=== PATIENT | female | born 1945 | race Caucasian/White ===

== ENCOUNTER 2022-01-16 11:15 | Day surgery (SDC) | payer MEDICARE, MEDICAID ==
[2022-01-16] VITALS (10 sets, daily range): BP systolic 110–159; BP diastolic 47–83
[~2022-01-16] VITALS: Ht 162.6 cm; Wt 64.8 kg
[~2022-01-16 11:15] MED LIST: ADVAIR HFA; ALBUTEROL; ASPI-611 PO; ATOR80TA PO; BLAC80CA; CHOL100024; IOHEXOL 350 MG/ML INFUS..BTL 125ML IV ONE; NITR0.4T48 SL; OMEP40CA21 PO; ONDA4TAB12 PO
[2022-01-16] MEDS ORDERED: normal saline 1,000 ML IV SCH (11:40)
[2022-01-16] MEDS ORDERED: diphenhydrAMINE 25mg capsule PO PRN (11:40)
[2022-01-16 12:18] LABS: BASOPHILS % (AUTO) 0.8 % (0-1); EOSINOPHILS # (AUTO) 0.2 X10'3 (0-0.9); EOSINOPHILS % (AUTO) 2.5 % (0-6); HEMATOCRIT 40.3 % (35.0-45.0); HEMOGLOBIN 13.5 g/dl (12.0-16.0); LYMPHOCYTES # (AUTO) 2.2 X10'3 (1.1-4.8); LYMPHOCYTES % (AUTO) 35.9 % (21-51); MEAN CORPUSCULAR HEMOGLOBIN 33.1 PG (27.0-31.0); MEAN CORPUSCULAR HGB CONC 33.5 g/dL (33.0-36.5); MEAN CORPUSCULAR VOLUME 98.9 FL (78-98); MONOCYTES # (AUTO) 0.4 X10'3 (0-0.9); MONOCYTES % (AUTO) 7.2 % (2-12); NEUTROPHILS # (AUTO) 3.3 X10'3 (1.8-7.7); NEUTROPHILS % (AUTO) 53.6 % (42-75); PLATELET COUNT 170 X10'3 (140-440); RED BLOOD COUNT 4.08 X10'6 (4.20-5.60); RED CELL DISTRIBUTION WIDTH 13.8 % (11.5-14.5); WHITE BLOOD COUNT 6.1 X10'3 (4.5-11.0)
[2022-01-16 12:25] LABS: ALBUMIN 3.7 G/DL (3.4-5.0); ANION GAP 12 (8-16); BLOOD UREA NITROGEN 24 MG/DL (7-18); BUN/CREATININE RATIO 21.1 (6.6-38.0); CHLORIDE 108 MMOL/L (99-107); CREATININE 1.14 MG/DL (0.40-0.90); GLUCOSE 107 MG/DL (70-104); MAGNESIUM 1.7 MG/DL (1.5-2.4); POTASSIUM 3.7 MMOL/L (3.5-5.1); SODIUM 145 MMOL/L (135-145); TOTAL CARBON DIOXIDE 25.3 MMOL/L (24-32); eGFR 46 ML/MIN
[2022-01-16] MEDS ORDERED: NITR4.9S4 (12:30)
[2022-01-16] MEDS ORDERED: DOCU-345 PO (12:30)
[2022-01-16] MEDS ORDERED: EVOL140P3 SQ (12:30)
[2022-01-16] MEDS ORDERED: ATOR10TA70 PO (12:30)
[2022-01-16] MEDS ORDERED: nitroGLYCERIN-Tridil 50MG/D5W 250 ML IV ONE (14:40)
[2022-01-16] MEDS ORDERED: heparin 1,000unit/ml 10ml vial 10 ML ONE (14:41)
[2022-01-16] MEDS ORDERED: verapamil 2.5 mg/ml inj IV ONE (14:41)
[2022-01-16] MEDS ORDERED: LIDOcaine 1% 30ml preserv. free vial ONE (14:41)
[2022-01-16] MEDS ORDERED: midazolam 1 mg/ML 2ml injection ONE ×4 (14:41→15:34)
[2022-01-16] MEDS ORDERED: fentaNYL/PF 50MCG/1 ML 2ML syringe ONE (14:42)
[2022-01-16] MEDS ORDERED: ticagrelor 90mg tablet ONE (15:53)
[2022-01-16] MEDS ORDERED: HYDROcodone/acetaminophen 5mg/325mg tablet PO PRN (17:00)
[2022-01-16] MEDS ORDERED: HYDROcodone/acetaminophen 10/325mg tab PO PRN (17:00)
[2022-01-16] MEDS ORDERED: ondansetron/PF 4mg/2ml inj IV PRN (17:00)
[2022-01-16] MEDS ORDERED: normal saline 1000ml 1,000 ML IV SCH (17:00)
[2022-01-16] MEDS ORDERED: proCHLORperazine 10 MG/2 ml inj IV PRN (17:00)
[2022-01-16] MEDS ORDERED: nitroGLYCERIN 0.4mg SUBLingual tab SL ONE (17:25)
[2022-01-16] MEDS ORDERED: nitroGLYCERIN 0.4mg SUBLingual tab SL PRN (17:25)
== END 2022-01-16 20:00 | disposition home or self-care (01) ==
LOC: SSTAY O 11:15
PROVIDERS: ATTEND Internal Medicine Cardiovascular Disease
DX: I25.118 Atherosclerotic heart disease of native coronary artery with other forms of angina pectoris (principal); I12.9 Hypertensive chronic kidney disease with stage 1 through stage 4 chronic kidney disease, or unspecified chronic kidney disease; N18.30 Chronic kidney disease, stage 3 unspecified; J44.9 Chronic obstructive pulmonary disease, unspecified; F17.210 Nicotine dependence, cigarettes, uncomplicated; Z79.899 Other long term (current) drug therapy
CPT/HCPCS: 36415; 80048; 83735; 85025; 85610; 93005; 93458; 99152; 99153; C1760; C1769; C1894; J1644; J2250; J3010; J3490; J7030; Q0163; Q9967; A5120; A6258

== ENCOUNTER 2022-01-31 03:44 | Inpatient (IN) | payer MEDICARE, MEDICAID ==
[2022-01-30 13:36] LABS: BASOPHILS # (AUTO) 0.1 X10'3 (0-0.2); BASOPHILS % (AUTO) 0.8 % (0-1); EOSINOPHILS # (AUTO) 0.2 X10'3 (0-0.9); LYMPHOCYTES # (AUTO) 2.2 X10'3 (1.1-4.8); LYMPHOCYTES % (AUTO) 34.8 % (21-51); MEAN CORPUSCULAR HEMOGLOBIN 33.3 PG (27.0-31.0); MEAN CORPUSCULAR HGB CONC 33.6 g/dL (33.0-36.5); MEAN PLATELET VOLUME 10.9 FL (7.4-10.4); MONOCYTES # (AUTO) 0.3 X10'3 (0-0.9); MONOCYTES % (AUTO) 5.4 % (2-12); NEUTROPHILS # (AUTO) 3.5 X10'3 (1.8-7.7); PRE OP HEMATOCRIT 40.4 % (35.0-45.0); PRE OP HEMOGLOBIN 13.6 g/dL (12.0-16.0); PRE OP PLATELET COUNT 180 X10'3 (140-440); RED BLOOD COUNT 4.08 X10'6 (4.20-5.60); RED CELL DISTRIBUTION WIDTH 13.7 % (11.5-14.5)
[2022-01-30 13:48] LABS: PRE OP PROTIME 9.9 SECONDS (9.0-12.0)
[2022-01-30 13:50] LABS: ALBUMIN 3.4 G/DL (3.4-5.0); ALBUMIN/GLOBULIN RATIO 0.9 (1.1-1.5); ALKALINE PHOSPHATASE 143 IU/L (46-116); BLOOD UREA NITROGEN 17 MG/DL (7-18); BUN/CREATININE RATIO 15.6 (6.6-38.0); CALCIUM 8.7 MG/DL (8.5-10.1); CHLORIDE 110 MMOL/L (99-107); CREATININE 1.09 MG/DL (0.40-0.90); PRE OP ALT 19 U/L (30-65); PRE OP ANION GAP 10 (8-16); PRE OP AST 13 U/L (10-37); PRE OP BILIRUB, TOTAL 0.2 MG/DL (0.0-1.0); PRE OP GLUCOSE 100 MG/DL (70-104); PRE OP POTASSIUM 3.6 MMOL/L (3.4-5.1); PRE OP SODIUM 147 MMOL/L (135-145); eGFR 49 ML/MIN
[2022-01-30 13:58] LABS: UA COLLECTION TYPE CLN CATCH MIDSTREAM
[2022-01-30 13:59] LABS: CLARITY,URINE CLEAR (Clear); COLOR,URINE YELLOW (Yellow); GLUCOSE, URINE NEGATIVE (Neg); KETONES,URINE NEGATIVE (Neg); LEUKOCYTE ESTERASE ,URINE NEGATIVE (Neg); NITRITES, URINE NEGATIVE (Neg); OCCULT BLOOD,URINE MODERATE (Neg); PH,URINE 5.5 (4.8-8.0); PROTEIN,URINE NEGATIVE (Neg); UROBILINOGEN,URINE 0.2 E.U/dL (0.2-1.0)
[2022-01-30 14:23] LABS: BACTERIA,URINE FEW /HPF (Neg); HYALINE CASTS 0-3 /LPF (NEGATIVE); MUCUS STRANDS FEW /LPF (Neg); SQUAMOUS EPITHELIAL CELL,UR FEW /LPF (FEW); WBC,URINE 0-4 /HPF (0-4); YEAST FEW /HPF (NEGATIVE)
[~2022-01-31] VITALS: Ht 162.6 cm; Wt 67.6 kg
[2022-01-31] VITALS (26 sets, daily range): BP systolic 79–159; BP diastolic 40–72
[~2022-01-31 03:44] MED LIST changes: +ACET-812 PO; -ADVAIR HFA; -ALBUTEROL; +ATOR10TA70 PO; -ATOR80TA PO; +EVOL140P3 SQ; +FLO44IN IH; -IOHEXOL 350 MG/ML INFUS..BTL 125ML IV ONE; +LOP12.5T PO; +MELA5TAB12 PO; -NITR0.4T48 SL; +NITR4.9S4; +albuterol 2.5 MG/3 ML nebule NEB PRN; +dextrose 50%-water 50ml dispensing syringe IV PRN
[2022-01-31] MEDS ORDERED: ringers solution, lacted 1,000 ML IV SCH ×2 (05:00→07:22)
[2022-01-31] MEDS ORDERED: ceFAZolin 1000mg inj ONE (05:27)
[2022-01-31] MEDS ORDERED: epiNEPHrine 1 mg/ml inj ONE (05:27)
[2022-01-31] MEDS ORDERED: ceFAZolin inj. 2,000 MG in dextrose 5%-water 100 ML IV ONE (05:30)
[2022-01-31] MEDS ORDERED: famotidine 20mg tablet PO ONE ×2 (05:30→07:22)
[2022-01-31] MEDS ORDERED: DOCUMENT DATE & TIME OF BETA-BLOCKER PO ONE (05:30)
[2022-01-31] MEDS ORDERED: mupirocin 2% nasal ointment 1gm UD NS PRN (05:30)
[2022-01-31] MEDS ORDERED: vancomycin/NS 1 GM in NS 250 ML IV ONE (05:30)
[2022-01-31] MEDS ORDERED: gabapentin 300mg capsule PO ONE (05:30)
[2022-01-31] MEDS ORDERED: LORazepam 1 MG tablet PO ONE (07:30)
[2022-01-31] MEDS ORDERED: MIDAZolam 1 MG/ML 5ML VIAL ONE (07:34)
[2022-01-31] MEDS ORDERED: SUFENTANIL CITRATE 50 MCG/ML 2ml ampule IV ONE (07:34)
[2022-01-31] MEDS ORDERED: LORazepam 2 mg/ml vial IV ONE (07:40)
[2022-01-31] MEDS ORDERED: protamine sulf. 10mg/ml inj. IV ONE (07:41)
[2022-01-31] MEDS ORDERED: aminocaproic acid 250 MG/1 ML inj. ONE ×2 (07:41→08:00)
[2022-01-31] MEDS ORDERED: sevoflurane 250ml liquid IH ONE (07:41)
[2022-01-31] MEDS ORDERED: rocuronium 10mg/ml inj IV ONE ×2 (07:41→08:32)
[2022-01-31] MEDS ORDERED: heparin 1,000 units/ml 10ml inj ONE (08:00)
[2022-01-31] MEDS ORDERED: papaverine 30 mg/ml 2ml inj. IA ONE (08:00)
[2022-01-31] MEDS ORDERED: heparin 10,000 units/1 ML INJ ONE (08:00)
[2022-01-31] MEDS ORDERED: heparin 10,000 units/1 ML INJ IR ONE (08:00)
[2022-01-31] MEDS ORDERED: propofol inj 20 ML IV ONE (08:32)
[2022-01-31 08:33] LABS: ABG BASE EXCESS -4.9 mmol/L (-2.0-2.0); ABG HCO3 19.2 mmol/L (22.0-26.0); ABG OXYGEN SATURATION 99.5 % (94-97); ABG PO2 338.7 mmHg (75.0-100.0); CL (ABG) 110 mmol/L (98-110); FCOHb 0.1 % (0.0-3.9); FMetHb 0.3 % (0.0-1.5); FO2Hb 99.1 % (94-97); GLUCOSE (ABG) 138 mg/dl (70-105); IONIZED CA (ABG) 1.14 mmol/L (1.10-1.43); TOTAL HEMOGLOBIN 10.4 G/dl (12.0-16.0)
[2022-01-31 09:07] LABS: ABG BASE EXCESS VENOUS -3.6 mmol/L (-2.0 - 2.0); ABG HCO3 VENOUS 22.4 mmol/L (21.0-28.0); ABG PCO2 VENOUS 44.9 mmHg (38.0-51.0); ABG PO2 VENOUS 50.1 mmHg (25.0-35.0); CL (ABG) 110 mmol/L (98-110); FCOHb VENOUS 0.7 % (0.0- 3.9); FHHb VENOUS 18.4 %; FMetHb VENOUS 0.3 % (0.0 - 0.5); FO2Hb VENOUS 80.6 %; GLUCOSE (ABG) 142 mg/dl (70-105); IONIZED CA (ABG) 1.13 mmol/L (1.10-1.43)
[2022-01-31 09:56] LABS: ABG BASE EXCESS -4.3 mmol/L (-2.0-2.0); ABG HCO3 21.2 mmol/L (22.0-26.0); ABG PCO2 40.6 mmHg (32.0-45.0); CL (ABG) 111 mmol/L (98-110); FMetHb 0.3 % (0.0-1.5); GLUCOSE (ABG) 135 mg/dl (70-105); K (ABG) 3.1 mmol/L (3.5-5.0); TOTAL HEMOGLOBIN 8.4 G/dl (12.0-16.0)
[2022-01-31 09:56] LABS: ACTIVATED CLOTTING TIME 118 SEC (101-148)
[2022-01-31] MEDS ORDERED: acetaminophen 325mg tablet PO PRN ×2 (10:15)
[2022-01-31] MEDS ORDERED: mineral oil 133ml enema RC PRN (10:15)
[2022-01-31] MEDS ORDERED: potassium CL 10mEq/100ml bag 100 ML IV PRN (10:15)
[2022-01-31] MEDS ORDERED: niCARDipine-NS 40mg/200ml IVPB 200 ML IV PRN (10:15)
[2022-01-31] MEDS ORDERED: insulin glargine (Lantus) pen - multi-dose SQ PRN (10:15)
[2022-01-31] MEDS ORDERED: dextrose 50%-water 50ml dispensing syringe IV PRN (10:15)
[2022-01-31] MEDS ORDERED: bisacodyl 10mg suppository rectal RC PRN (10:15)
[2022-01-31] MEDS ORDERED: Insulin Reg/NS 100units/100mL 100 ML IV SCH (10:15)
[2022-01-31] MEDS ORDERED: sodium phosphate inj. 30 MMOL in dextrose 5%-water 250 ML IV PRN (10:15)
[2022-01-31] MEDS ORDERED: magnesium citrate 296ml oral solution PO PRN (10:15)
[2022-01-31] MEDS ORDERED: magnesium 2GM in 50ml NS 50 ML IV PRN (10:15)
[2022-01-31] MEDS ORDERED: sodium phosphate inj. 15 MMOL in dextrose 5%-water 250 ML IV PRN (10:15)
[2022-01-31] MEDS ORDERED: metoclopramide 5 mg/ml inj IV PRN (10:15)
[2022-01-31] MEDS ORDERED: Neutra Phos packet PO PRN (10:15)
[2022-01-31] MEDS ORDERED: sodium chloride 0.45% 1,000 ML IV SCH (10:15)
[2022-01-31] MEDS ORDERED: nitroGLYCERIN-Tridil 50MG/D5W 250 ML IV SCH (10:15)
[2022-01-31] MEDS ORDERED: magnesium hydroxide 30ml (MOM) UD suspension PO PRN (10:15)
[2022-01-31] MEDS ORDERED: potassium Cl 20 mEq SR tablet PO PRN (10:15)
--- NOTE | 2022-01-31 10:45 | NUR ---
Received to room 2009, accompanied by Lisa Monsivais and surgical crew. Placed on ventilator, to instructor painting, arterial line and PA line pressure monitored. Chest tubes to suction at 20 cm. Em cath to gravity drainage. Dressings are dry and intact. See assessment record. All vasoactive drugs are infusing via central line.
[2022-01-31 10:53] LABS: ABG HCO3 18.5 mmol/L (22.0-26.0); ABG OXYGEN SATURATION 98.9 % (94-97); ABG PCO2 (T) 24.4 mmHg (32.0-45.0); ABG PO2 (T) 261.7 mmHg (75.0-100.0); FCOHb 0.2 % (0.0-3.9); FMetHb 0.2 % (0.0-1.5); FO2Hb 98.5 % (94-97); PATIENT TEMPERATURE 33.2; RESPIRATORY RATE 12 b/min; TIDAL VOLUME 500 mL; TOTAL HEMOGLOBIN 9.9 G/dl (12.0-16.0)
[2022-01-31] MEDS: albumin (Human) 5% 250ml 250 ML IV PRN ×2 (11:00→12:27)
[2022-01-31 11:18] LABS: BASOPHILS % (AUTO) 0.8 % (0-1); EOSINOPHILS # (AUTO) 0.1 X10'3 (0-0.9); EOSINOPHILS % (AUTO) 2.2 % (0-6); HEMATOCRIT 26.7 % (35.0-45.0); HEMOGLOBIN 9.1 g/dl (12.0-16.0); LYMPHOCYTES # (AUTO) 1.4 X10'3 (1.1-4.8); LYMPHOCYTES % (AUTO) 25.6 % (21-51); MEAN CORPUSCULAR HEMOGLOBIN 33.4 PG (27.0-31.0); MEAN CORPUSCULAR VOLUME 98.3 FL (78-98); MONOCYTES # (AUTO) 0.3 X10'3 (0-0.9); MONOCYTES % (AUTO) 5.5 % (2-12); NEUTROPHILS # (AUTO) 3.5 X10'3 (1.8-7.7); NEUTROPHILS % (AUTO) 65.9 % (42-75); PLATELET COUNT 100 X10'3 (140-440); RED BLOOD COUNT 2.72 X10'6 (4.20-5.60); RED CELL DISTRIBUTION WIDTH 13.4 % (11.5-14.5); WHITE BLOOD COUNT 5.4 X10'3 (4.5-11.0)
[2022-01-31 11:28] LABS: APTT 27 SECONDS (22-32)
[2022-01-31] MEDS: morphine 4 MG/ML inj SYRINge IV PRN ×3 (11:35→19:47)
[2022-01-31 11:41] LABS: ALANINE AMINOTRANSFERASE 8 U/L (12-78); ALBUMIN 2.5 G/DL (3.4-5.0); ALBUMIN/GLOBULIN RATIO 1.4 (1.1-1.5); ALKALINE PHOSPHATASE 69 IU/L (46-116); ANION GAP 10 (8-16); ASPARTATE AMINO TRANSFERASE 9 U/L (10-37); BILIRUBIN,TOTAL 0.1 MG/DL (0.1-1.0); BLOOD UREA NITROGEN 13 MG/DL (7-18); BUN/CREATININE RATIO 18.6 (6.6-38.0); CHLORIDE 115 MMOL/L (99-107); GLUCOSE 118 MG/DL (70-104); MAGNESIUM 1.2 MG/DL (1.5-2.4); PHOSPHORUS 1.7 MG/DL (2.3-4.5); SODIUM 145 MMOL/L (135-145); TOTAL CARBON DIOXIDE 20.5 MMOL/L (24-32); TOTAL PROTEIN 4.3 G/DL (6.4-8.2); eGFR 81 ML/MIN
[2022-01-31] MEDS: potassium Cl 20mEq/100mL bag 100 ML IV PRN ×2 (11:54→14:11)
[2022-01-31] MEDS ORDERED: gabapentin 300mg capsule PO SCH (13:00)
[2022-01-31] MEDS: gabapentin 300mg capsule PO SCH ×2 (13:51→20:40)
[2022-01-31] MEDS: Insulin Reg/NS 100units/100mL 100 ML IV SCH (13:53)
[2022-01-31] MEDS: morphine 2 MG/ML inj. syringe IV PRN ×2 (15:35→17:27)
[2022-01-31 16:17] LABS: ABG BASE EXCESS -6.4 mmol/L (-2.0-2.0); ABG HCO3 18.9 mmol/L (22.0-26.0); ABG OXYGEN SATURATION 97.9 % (94-97); ABG PCO2 (T) 37.1 mmHg (32.0-45.0); ABG PO2 (T) 166.5 mmHg (75.0-100.0); FMetHb 0.3 % (0.0-1.5); FO2Hb 96.6 % (94-97); PATIENT TEMPERATURE 37.4; PEEP 5 cm H2O; TOTAL HEMOGLOBIN 6.7 G/dl (12.0-16.0)
[2022-01-31 16:48] LABS: BASOPHILS % (AUTO) 0.2 % (0-1); EOSINOPHILS % (AUTO) 0 % (0-6); LYMPHOCYTES # (AUTO) 0.4 X10'3 (1.1-4.8); LYMPHOCYTES % (AUTO) 4.2 % (21-51); MEAN CORPUSCULAR HEMOGLOBIN 33.5 PG (27.0-31.0); MEAN CORPUSCULAR HGB CONC 33.9 g/dL (33.0-36.5); MEAN CORPUSCULAR VOLUME 98.9 FL (78-98); MEAN PLATELET VOLUME 10.8 FL (7.4-10.4); MONOCYTES # (AUTO) 0.4 X10'3 (0-0.9); MONOCYTES % (AUTO) 3.5 % (2-12); NEUTROPHILS # (AUTO) 9.7 X10'3 (1.8-7.7); NEUTROPHILS % (AUTO) 92.1 % (42-75); PLATELET COUNT 102 X10'3 (140-440); RED BLOOD COUNT 1.99 X10'6 (4.20-5.60); RED CELL DISTRIBUTION WIDTH 13.4 % (11.5-14.5); WHITE BLOOD COUNT 10.5 X10'3 (4.5-11.0)
[2022-01-31 16:54] LABS: HEMATOCRIT 19.7 % (35.0-45.0); HEMOGLOBIN 6.7 g/dl (12.0-16.0)
[2022-01-31 16:59] LABS: ALBUMIN 3.1 G/DL (3.4-5.0); ANION GAP 11 (8-16); BLOOD UREA NITROGEN 11 MG/DL (7-18); BUN/CREATININE RATIO 13.4 (6.6-38.0); CALCIUM 6.6 MG/DL (8.5-10.1); CHLORIDE 117 MMOL/L (99-107); CREATININE 0.82 MG/DL (0.40-0.90); GLUCOSE 138 MG/DL (70-104); PHOSPHORUS 2.3 MG/DL (2.3-4.5); POTASSIUM 3.5 MMOL/L (3.5-5.1); SODIUM 146 MMOL/L (135-145); TOTAL CARBON DIOXIDE 17.8 MMOL/L (24-32); eGFR 68 ML/MIN
[2022-01-31] MEDS: magnesium 4gm in 100ml NS 100 ML IV PRN (17:03)
[2022-01-31] MEDS: ceFAZolin/D5W- 1GM premix 50 ML IV SCH (17:41)
--- NOTE | 2022-01-31 18:30 | NUR ---
Problems reprioritized. Patient report given, questions answered & plan of care reviewed with FADI Ware.
[2022-01-31] MEDS: vancomycin/NS 1 GM ADD-VANTAGE 250 ML IV SCH (19:47)
[2022-01-31] MEDS: mupirocin 2% nasal ointment 1gm UD NS SCH (19:47)
[2022-01-31] MEDS: sennosides/docusate sodium tablet PO SCH (19:47)
[2022-01-31] MEDS: atorvastatin 10mg tablet PO SCH (19:48)
[2022-01-31] MEDS: HYDROcodone/acetaminophen 10/325mg tab PO PRN (20:40)
--- NOTE | 2022-01-31 20:40 | NUR ---
RN Note -Family Communication Spoke with pt's daughter Linda. Updated on pt condition and plan of care. Daughter spoke with pt on pt's cell phone.
[2022-01-31] MEDS ORDERED: Melatonin 3mg tablet PO SCH (21:00)
[2022-01-31 22:20] LABS: HEMATOCRIT 25.6 % (35.0-45.0); HEMOGLOBIN 8.5 g/dl (12.0-16.0); MEAN CORPUSCULAR HEMOGLOBIN 32.4 PG (27.0-31.0); MEAN CORPUSCULAR HGB CONC 33.2 g/dL (33.0-36.5); MEAN CORPUSCULAR VOLUME 97.6 FL (78-98); MEAN PLATELET VOLUME 11.4 FL (7.4-10.4); PLATELET COUNT 108 X10'3 (140-440); RED BLOOD COUNT 2.62 X10'6 (4.20-5.60); RED CELL DISTRIBUTION WIDTH 14.3 % (11.5-14.5); WHITE BLOOD COUNT 13.6 X10'3 (4.5-11.0)
[2022-02-01] VITALS (24 sets, daily range): BP systolic 80–154; BP diastolic 44–69
[2022-02-01] MEDS: ceFAZolin/D5W- 1GM premix 50 ML IV SCH ×3 (00:02→16:03)
[2022-02-01] MEDS: ondansetron/PF 4mg/2ml inj IV PRN (00:02)
[2022-02-01] MEDS: morphine 4 MG/ML inj SYRINge IV PRN ×2 (00:08→15:39)
[2022-02-01 01:43] LABS: BASOPHILS % (AUTO) 0.1 % (0-1); EOSINOPHILS % (AUTO) 0 % (0-6); HEMOGLOBIN 8.2 g/dl (12.0-16.0); LYMPHOCYTES # (AUTO) 0.7 X10'3 (1.1-4.8); LYMPHOCYTES % (AUTO) 4.5 % (21-51); MEAN CORPUSCULAR HGB CONC 32.9 g/dL (33.0-36.5); MEAN CORPUSCULAR VOLUME 97.2 FL (78-98); MEAN PLATELET VOLUME 11.1 FL (7.4-10.4); MONOCYTES # (AUTO) 1.1 X10'3 (0-0.9); MONOCYTES % (AUTO) 7.3 % (2-12); NEUTROPHILS # (AUTO) 13.5 X10'3 (1.8-7.7); NEUTROPHILS % (AUTO) 88.1 % (42-75); PLATELET COUNT 103 X10'3 (140-440); RED BLOOD COUNT 2.57 X10'6 (4.20-5.60); RED CELL DISTRIBUTION WIDTH 14.1 % (11.5-14.5); WHITE BLOOD COUNT 15.3 X10'3 (4.5-11.0)
[2022-02-01 01:57] LABS: ALANINE AMINOTRANSFERASE 13 U/L (12-78); ALBUMIN 3.2 G/DL (3.4-5.0); ALBUMIN/GLOBULIN RATIO 1.8 (1.1-1.5); ALKALINE PHOSPHATASE 65 IU/L (46-116); ANION GAP 11 (8-16); ASPARTATE AMINO TRANSFERASE 16 U/L (10-37); BILIRUBIN,TOTAL 0.3 MG/DL (0.1-1.0); BLOOD UREA NITROGEN 10 MG/DL (7-18); BUN/CREATININE RATIO 12.5 (6.6-38.0); CHLORIDE 115 MMOL/L (99-107); GLUCOSE 142 MG/DL (70-104); MAGNESIUM 3.4 MG/DL (1.5-2.4); PHOSPHORUS 3.4 MG/DL (2.3-4.5); POTASSIUM 4.3 MMOL/L (3.5-5.1); SODIUM 145 MMOL/L (135-145); TOTAL CARBON DIOXIDE 19.4 MMOL/L (24-32); eGFR 70 ML/MIN
[2022-02-01] MEDS: potassium Cl 20mEq/100mL bag 100 ML IV PRN (05:15)
--- NOTE | 2022-02-01 06:30 | NUR ---
RN Note -Shift Summary Pt having pain and resistant to coughing. Educated on need to cough and deep breathe. Managed pain with PRN medication.
[2022-02-01] MEDS: morphine 2 MG/ML inj. syringe IV PRN ×2 (06:57→11:50)
--- NOTE | 2022-02-01 07:26 | NUR ---
CABG consult: Pt s/p CABG 01/31, would benefit from nutrition therapy ed once more appropriate this admit Addendum: 02/01/22 at [address] Amended: Links added.
[2022-02-01] MEDS: metoprolol tartrate 12.5mg (1/2 tablet) PO SCH ×2 (08:00→10:10)
[2022-02-01] MEDS: Insulin Reg/NS 100units/100mL 100 ML IV SCH (08:00)
[2022-02-01] MEDS: vancomycin/NS 1 GM ADD-VANTAGE 250 ML IV SCH ×2 (08:26→20:44)
[2022-02-01] MEDS: gabapentin 300mg capsule PO SCH (08:36)
[2022-02-01] MEDS: aspirin 81mg tab.chew PO SCH (08:36)
[2022-02-01] MEDS: mupirocin 2% nasal ointment 1gm UD NS SCH ×2 (08:36→20:44)
[2022-02-01] MEDS: sennosides/docusate sodium tablet PO SCH ×2 (08:36→20:45)
[2022-02-01] MEDS ORDERED: albumin (Human) 5% 250ml 250 ML IV ONE (15:20)
[2022-02-01] MEDS ORDERED: acetylcysteine 200 MG/ml 4ml vial INH ONE (15:55)
[2022-02-01] MEDS ORDERED: albuterol 2.5 MG/3 ML nebule NEB SCH (16:00)
[2022-02-01] MEDS: acetylcysteine 200 MG/ml 4ml vial INH SCH ×3 (16:00→23:28)
[2022-02-01] MEDS ORDERED: ipratropium 0.5 MG/2.5ML nebule IH SCH (16:00)
--- NOTE | 2022-02-01 16:00 | NUR ---
Notified Dr. Kerr of decrease is urine output. Orders received and carried out. Dr. Kerr then called and ordered RT treatments and an ultrasound of left chest to rule out a pleural effusion. Completed these orders. Will continue to monitor.
[2022-02-01] MEDS: ipratropium/albuterol 3ml nebule NEB SCH ×2 (19:23→23:28)
[2022-02-01] MEDS: HYDROcodone/acetaminophen 10/325mg tab PO PRN (20:45)
[2022-02-01] MEDS: atorvastatin 10mg tablet PO SCH (20:45)
[2022-02-02] VITALS (27 sets, daily range): BP systolic 87–132; BP diastolic 36–69
[2022-02-02] MEDS: ceFAZolin/D5W- 1GM premix 50 ML IV SCH (00:42)
[2022-02-02] MEDS: HYDROcodone/acetaminophen 10/325mg tab PO PRN ×3 (00:43→20:07)
[2022-02-02] MEDS: ipratropium/albuterol 3ml nebule NEB SCH ×7 (03:30→23:32)
[2022-02-02] MEDS: acetylcysteine 200 MG/ml 4ml vial INH SCH ×8 (03:31→23:32)
[2022-02-02 03:51] LABS: BASOPHILS % (AUTO) 0.2 % (0-1); EOSINOPHILS # (AUTO) 0.1 X10'3 (0-0.9); EOSINOPHILS % (AUTO) 0.4 % (0-6); LYMPHOCYTES # (AUTO) 1.5 X10'3 (1.1-4.8); MEAN CORPUSCULAR HEMOGLOBIN 32.4 PG (27.0-31.0); MEAN CORPUSCULAR HGB CONC 33.3 g/dL (33.0-36.5); MEAN CORPUSCULAR VOLUME 97.3 FL (78-98); MEAN PLATELET VOLUME 11.2 FL (7.4-10.4); MONOCYTES # (AUTO) 1.3 X10'3 (0-0.9); NEUTROPHILS # (AUTO) 8.6 X10'3 (1.8-7.7); NEUTROPHILS % (AUTO) 75.4 % (42-75); PLATELET COUNT 76 X10'3 (140-440); RED BLOOD COUNT 1.99 X10'6 (4.20-5.60); RED CELL DISTRIBUTION WIDTH 14.8 % (11.5-14.5); WHITE BLOOD COUNT 11.5 X10'3 (4.5-11.0)
[2022-02-02 03:58] LABS: HEMOGLOBIN 6.5 g/dl (12.0-16.0)
[2022-02-02 03:59] LABS: HEMATOCRIT 19.4 % (35.0-45.0)
[2022-02-02 04:07] LABS: ALBUMIN 2.8 G/DL (3.4-5.0); ANION GAP 7 (8-16); BLOOD UREA NITROGEN 13 MG/DL (7-18); CALCIUM 7.7 MG/DL (8.5-10.1); CHLORIDE 115 MMOL/L (99-107); GLUCOSE 135 MG/DL (70-104); MAGNESIUM 2.5 MG/DL (1.5-2.4); PHOSPHORUS 2.4 MG/DL (2.3-4.5); POTASSIUM 4.6 MMOL/L (3.5-5.1); SODIUM 143 MMOL/L (135-145); TOTAL CARBON DIOXIDE 21.5 MMOL/L (24-32); eGFR 54 ML/MIN
--- NOTE | 2022-02-02 04:20 | NUR ---
RN Note -MD Communication Called Dr. Kerr regarding critical H&H. Orders received
[2022-02-02] MEDS ORDERED: NORepinephrine 8mg/ 250ml NS 250 ML IV PRN (05:20)
[2022-02-02 06:22] LABS: ABG BASE EXCESS -5.8 mmol/L (-2.0-2.0); ABG PCO2 (T) 26.1 mmHg (32.0-45.0); ABG PO2 (T) 118.5 mmHg (75.0-100.0); ALLEN'S TEST POSITIVE; FCOHb 0.3 % (0.0-3.9); FO2Hb 97.7 % (94-97)
[2022-02-02 06:44] LABS: ACT @ 1.70 U 286 SEC (193-297); ACT @ 2.84 U 398 SEC (260-420); BASELINE ACT 125 SEC (101-148); PATIENT WEIGHT 68.0k KG
[2022-02-02] MEDS: pantoprazole 40mg Tablet.DR PO SCH (07:48)
[2022-02-02] MEDS: mupirocin 2% nasal ointment 1gm UD NS SCH (07:49)
[2022-02-02] MEDS: sennosides/docusate sodium tablet PO SCH ×2 (07:49→20:08)
[2022-02-02] MEDS: aspirin 81mg tab.chew PO SCH (07:53)
[2022-02-02] MEDS: metoprolol tartrate 12.5mg (1/2 tablet) PO SCH ×2 (08:00→20:00)
[2022-02-02 10:03] LABS: ABG PO2 44.8 mmHg (75.0-100.0)
[2022-02-02 12:23] LABS: HEMATOCRIT 28.6 % (35.0-45.0); HEMOGLOBIN 9.7 g/dl (12.0-16.0); MEAN CORPUSCULAR HEMOGLOBIN 30.3 PG (27.0-31.0); MEAN CORPUSCULAR HGB CONC 33.8 g/dL (33.0-36.5); MEAN CORPUSCULAR VOLUME 89.5 FL (78-98); MEAN PLATELET VOLUME 10.4 FL (7.4-10.4); PLATELET COUNT 75 X10'3 (140-440); RED BLOOD COUNT 3.19 X10'6 (4.20-5.60); RED CELL DISTRIBUTION WIDTH 18.4 % (11.5-14.5); WHITE BLOOD COUNT 11.3 X10'3 (4.5-11.0)
[2022-02-02] MEDS: Insulin Reg/NS 100units/100mL 100 ML IV SCH (17:20)
[2022-02-02] MEDS: atorvastatin 10mg tablet PO SCH (20:07)
[2022-02-03] VITALS (13 sets, daily range): BP systolic 95–135; BP diastolic 44–60
[2022-02-03] MEDS: HYDROcodone/acetaminophen 10/325mg tab PO PRN ×3 (02:07→22:27)
[2022-02-03 02:27] LABS: BASOPHILS # (AUTO) 0.1 X10'3 (0-0.2); BASOPHILS % (AUTO) 0.6 % (0-1); EOSINOPHILS # (AUTO) 0.2 X10'3 (0-0.9); EOSINOPHILS % (AUTO) 1.9 % (0-6); HEMOGLOBIN 10.3 g/dl (12.0-16.0); LYMPHOCYTES # (AUTO) 2.1 X10'3 (1.1-4.8); LYMPHOCYTES % (AUTO) 20.1 % (21-51); MEAN CORPUSCULAR HEMOGLOBIN 30.8 PG (27.0-31.0); MEAN CORPUSCULAR HGB CONC 34.3 g/dL (33.0-36.5); MEAN CORPUSCULAR VOLUME 89.6 FL (78-98); MEAN PLATELET VOLUME 10.4 FL (7.4-10.4); MONOCYTES # (AUTO) 0.8 X10'3 (0-0.9); MONOCYTES % (AUTO) 7.7 % (2-12); NEUTROPHILS # (AUTO) 7.2 X10'3 (1.8-7.7); NEUTROPHILS % (AUTO) 69.7 % (42-75); PLATELET COUNT 82 X10'3 (140-440); RED BLOOD COUNT 3.35 X10'6 (4.20-5.60); RED CELL DISTRIBUTION WIDTH 18.9 % (11.5-14.5); WHITE BLOOD COUNT 10.4 X10'3 (4.5-11.0)
[2022-02-03 02:43] LABS: ALBUMIN 2.6 G/DL (3.4-5.0); ANION GAP 8 (8-16); BLOOD UREA NITROGEN 11 MG/DL (7-18); BUN/CREATININE RATIO 13.4 (6.6-38.0); CALCIUM 8.3 MG/DL (8.5-10.1); CHLORIDE 111 MMOL/L (99-107); CREATININE 0.82 MG/DL (0.40-0.90); GLUCOSE 125 MG/DL (70-104); MAGNESIUM 1.9 MG/DL (1.5-2.4); PHOSPHORUS 2.1 MG/DL (2.3-4.5); POTASSIUM 4.1 MMOL/L (3.5-5.1); SODIUM 144 MMOL/L (135-145); TOTAL CARBON DIOXIDE 25.4 MMOL/L (24-32); eGFR 68 ML/MIN
[2022-02-03] MEDS: acetylcysteine 200 MG/ml 4ml vial INH SCH ×6 (03:35→23:49)
[2022-02-03] MEDS: ipratropium/albuterol 3ml nebule NEB SCH ×6 (03:35→23:47)
[2022-02-03] MEDS: magnesium 4gm in 100ml NS 100 ML IV PRN (05:19)
--- NOTE | 2022-02-03 06:10 | NUR ---
Problems reprioritized. Patient report given, questions answered & plan of care reviewed with FADI Wetzel. Addendum: 02/03/22 at 0616 by Ca Joshi RN wrong patient.
--- NOTE | 2022-02-03 06:16 | NUR ---
Problems reprioritized. Patient report given, questions answered & plan of care reviewed with FADI Marks.
--- NOTE | 2022-02-03 06:29 | NUR ---
Patient in room CICU 2008. I have received report from Ca APONTE and had the opportunity to ask questions and assume patient care.
[2022-02-03] MEDS: ondansetron/PF 4mg/2ml inj IV PRN (06:51)
[2022-02-03] MEDS: metoprolol tartrate 12.5mg (1/2 tablet) PO SCH ×2 (08:00→20:00)
[2022-02-03] MEDS: sennosides/docusate sodium tablet PO SCH ×2 (08:34→20:00)
[2022-02-03] MEDS: aspirin 81mg tab.chew PO SCH (08:34)
[2022-02-03] MEDS: pantoprazole 40mg Tablet.DR PO SCH (08:34)
--- NOTE | 2022-02-03 08:37 | NUR ---
Chest tubes and epicardial pacer wire removed by Bunny S[facility].
--- NOTE | 2022-02-03 09:40 | NUR ---
assumed care of pt
--- NOTE | 2022-02-03 11:00 | NUR ---
pt transferred to pcu. report given to Nina PAONTE
--- NOTE | 2022-02-03 11:11 | NUR ---
Patient in room CICU 2008. I have received report from jason APONTE and had the opportunity to ask questions and awaiting patients arrival
--- NOTE | 2022-02-03 11:30 | NUR ---
CABG consult: Pt post-op day 3 s/p CABGx4 per EMR. RD attempted to provide written/verbal high protein/HH diet ed to pt however pt states unable to think clearly at this time and pt cellphone rang which she wanted to answer. RD left written eds w/ RD contact information at bedside pt will need ed reinforcement once more appropriate prior to discharge. Pt initial PO poor post-op 0-25% most meals on NCS diet; BEVERLEY recommends Ensure Enlive TIDWM PA notified. Addendum: 02/03/22 at [address] Amended: Links added.
--- NOTE | 2022-02-03 12:18 | NUR ---
patient arrived on floor in stable condition
[2022-02-03] MEDS: lactose-reduced food (Ensure Enlive) - 237ml bottle PO SCH ×2 (13:00→18:00)
--- NOTE | 2022-02-03 17:30 | NUR ---
medicated for pain x1. with good results will continue to monitor
--- NOTE | 2022-02-03 18:34 | NUR ---
Patient in room PCU 3020. I have received report from Kylee APONTE and Adri naylor RN and had the opportunity to ask questions and assume patient care.
--- NOTE | 2022-02-03 18:35 | NUR ---
Patient in room PCU 3020. I have received report from Kylee APONTE and had the opportunity to ask questions and assume patient care.
--- NOTE | 2022-02-03 18:45 | NUR ---
Patient in room PCU 3020. I have received report from Kylee APONTE and had the opportunity to ask questions and assume patient care.
--- NOTE | 2022-02-03 18:49 | NUR ---
patient appears stable. family visiting in room. All cares given Report given to Cheryl APONTE
--- NOTE | 2022-02-03 19:00 | NUR ---
Daughters state that they have some protein/fruit shake in the fridge here for later. Addendum: 02/04/22 at 0344 by Cheryl Bailey RN Amended: Links added.
[2022-02-03] MEDS: potassium Cl 20 mEq SR tablet PO SCH (20:00)
[2022-02-03] MEDS: magnesium Cl slow-release 64mg tablet PO SCH (22:16)
[2022-02-03] MEDS: atorvastatin 10mg tablet PO SCH (22:17)
[2022-02-04 02:00] VITALS: BP 103/53
[2022-02-04] MEDS: ipratropium/albuterol 3ml nebule NEB SCH ×4 (03:14→15:07)
[2022-02-04] MEDS: acetylcysteine 200 MG/ml 4ml vial INH SCH ×4 (04:00→15:07)
[2022-02-04 06:40] LABS: BASOPHILS # (AUTO) 0.1 X10'3 (0-0.2); BASOPHILS % (AUTO) 0.7 % (0-1); EOSINOPHILS # (AUTO) 0.3 X10'3 (0-0.9); EOSINOPHILS % (AUTO) 3.6 % (0-6); HEMATOCRIT 28.6 % (35.0-45.0); HEMOGLOBIN 9.7 g/dl (12.0-16.0); LYMPHOCYTES % (AUTO) 23.1 % (21-51); MEAN CORPUSCULAR HEMOGLOBIN 30.8 PG (27.0-31.0); MEAN CORPUSCULAR HGB CONC 33.8 g/dL (33.0-36.5); MEAN CORPUSCULAR VOLUME 91.1 FL (78-98); MONOCYTES # (AUTO) 0.8 X10'3 (0-0.9); MONOCYTES % (AUTO) 9.7 % (2-12); NEUTROPHILS # (AUTO) 5.4 X10'3 (1.8-7.7); NEUTROPHILS % (AUTO) 62.9 % (42-75); PLATELET COUNT 108 X10'3 (140-440); RED BLOOD COUNT 3.14 X10'6 (4.20-5.60); RED CELL DISTRIBUTION WIDTH 18.3 % (11.5-14.5); WHITE BLOOD COUNT 8.5 X10'3 (4.5-11.0)
--- NOTE | 2022-02-04 06:40 | NUR ---
Problems reprioritized. Patient report given, questions answered & plan of care reviewed with Kylee APONTE.
[2022-02-04 06:55] LABS: ALBUMIN 2.3 G/DL (3.4-5.0); ANION GAP 6 (8-16); BLOOD UREA NITROGEN 12 MG/DL (7-18); BUN/CREATININE RATIO 12.8 (6.6-38.0); CALCIUM 8.5 MG/DL (8.5-10.1); CHLORIDE 109 MMOL/L (99-107); CREATININE 0.94 MG/DL (0.40-0.90); GLUCOSE 108 MG/DL (70-104); POTASSIUM 4.7 MMOL/L (3.5-5.1); SODIUM 142 MMOL/L (135-145); TOTAL CARBON DIOXIDE 26.7 MMOL/L (24-32); eGFR 58 ML/MIN
[2022-02-04 07:00] VITALS: BP 127/51
--- NOTE | 2022-02-04 07:01 | NUR ---
Patient in room PCU 3020. I have received report from Cheryl APONTE and had the opportunity to ask questions and assume patient care.
[2022-02-04] MEDS: lactose-reduced food (Ensure Enlive) - 237ml bottle PO SCH ×2 (08:00→13:41)
[2022-02-04] MEDS: aspirin 81mg tab.chew PO SCH (08:36)
[2022-02-04 08:37] VITALS: BP_SYST 127
[2022-02-04] MEDS: pantoprazole 40mg Tablet.DR PO SCH (08:37)
[2022-02-04] MEDS: metoprolol tartrate 12.5mg (1/2 tablet) PO SCH (08:37)
[2022-02-04] MEDS: magnesium Cl slow-release 64mg tablet PO SCH (08:37)
[2022-02-04] MEDS: potassium Cl 20 mEq SR tablet PO SCH (08:37)
[2022-02-04] MEDS: sennosides/docusate sodium tablet PO SCH (08:37)
[2022-02-04] MEDS: HYDROcodone/acetaminophen 10/325mg tab PO PRN (15:52)
--- NOTE | 2022-02-04 16:39 | NUR ---
patient c/o pain medicated x1 with [place] prior to DC. patient seen by Joshua SIN cardiology. Is for DC. [facility] called and report given to Pippa APONTE. Patient Dc to [facility] via [employer] [facility] in stable condition. [id number]
== END 2022-02-04 16:51 | DRG 236 ==
LOC: CICU 2S 03:44 → PCU 3S 02-03 12:16
PROVIDERS: ADMIT Thoracic Surgery (Cardiothoracic Vascular Surgery); ATTEND Thoracic Surgery (Cardiothoracic Vascular Surgery)
PROC: 021009W Bypass Coronary Artery, One Artery from Aorta with Autologous Venous Tissue, Open Approach (ICD-10-PCS; 2022-01-31)
PROC: 06BQ4ZZ Excision of Left Saphenous Vein, Percutaneous Endoscopic Approach (ICD-10-PCS; 2022-01-31)
PROC: B24BZZ4 Ultrasonography of Heart with Aorta, Transesophageal (ICD-10-PCS; 2022-01-31)
PROC: 30233N1 Transfusion of Nonautologous Red Blood Cells into Peripheral Vein, Percutaneous Approach (ICD-10-PCS; 2022-01-31)
PROC: 05HM33Z Insertion of Infusion Device into Right Internal Jugular Vein, Percutaneous Approach (ICD-10-PCS; 2022-01-31)
PROC: 02100Z9 Bypass Coronary Artery, One Artery from Left Internal Mammary, Open Approach (ICD-10-PCS; principal; 2022-01-31 07:41)
DX: I25.119 Atherosclerotic heart disease of native coronary artery with unspecified angina pectoris (principal); M81.0 Age-related osteoporosis without current pathological fracture; J44.9 Chronic obstructive pulmonary disease, unspecified; N18.30 Chronic kidney disease, stage 3 unspecified; Z95.5 Presence of coronary angioplasty implant and graft
CPT/HCPCS: 36415; 36430; 36600; 71045; 71046; 71250; 76604; 80048; 80053; 81001; 82330; 82435; 82803; 82947; 82948; 83036; 83735; 84100; 84132; 84295; 84443; 85018; 85025; 85027; 85347; 85610; 85730; 86885; 86900; 86901; 86920; 87081; 93005; 93312; 93325; 93880; 93971; 94002; 94010; 94640; 94664; 94668; 94760; 97110; 97116; 97162; 97530; A4333; A4615; A4618; A6213; A6258; A6449; A7000; A7048; C1713; C1751; G0378; J0171; J0690; J1644; J1815; J2060; J2250; J2270; J2405; J2440; J2704; J2720; J2765; J3370; J3475; J3480; J3490; J7030; J7040; J7050; J7060; J7120; P9016; P9045